=== PATIENT | female | born 1965 | race African-American/Black ===

== ENCOUNTER 2021-08-09 09:46 | Outpatient (CLI) | payer BC, SELFPAY ==
[2021-08-09 13:02] LABS: Anion Gap 7 mmol/L (8-16); Blood Urea Nitrogen 9 mg/dL (7-17); Calcium 9.2 mg/dL (8.4-10.2); Carbon Dioxide 25 mmol/L (22-30); Chloride 108 mmol/L (98-107); Cholesterol 164 mg/dL (0-200); Estimated Glomerular Filt Rate > 60; Glucose 100 mg/dL (65-110); HDL Direct 36 mg/dL; Potassium 4.3 mmol/L (3.4-5.0); Sodium 140 mmol/L (137-145); Triglycerides 90 mg/dL (<150)
[2021-08-09 13:12] LABS: LDL Cholesterol Direct 89 mg/dL
[2021-08-09 13:31] LABS: Thyroid Stimulating Hormone 0.893 uIU/mL (0.465-4.680)
[2021-08-09 14:30] LABS: Creatinine Urine 237.8 mg/dL
[2021-08-09 14:34] LABS: MALB Creatinine Ratio 4.5 mg/g (0-30); Microalbumin Urine Random 10.8 mg/L (0-16.7)
[2021-08-09 18:25] LABS: Free T4 Free Thyroxine 1.46 ng/mL (0.78-2.19); Vitamin D 25 Hydroxy 80.6 ng/mL
== END 2021-08-09 09:47 | disposition home or self-care (01) ==
LOC: ANHWCLAB 09:51
PROVIDERS: PCP Internal Medicine; Referring Provider Internal Medicine Endocrinology, Diabetes & Metabolism; Visit Provider Internal Medicine Endocrinology, Diabetes & Metabolism
DX: E11.40 Type 2 diabetes mellitus with diabetic neuropathy, unspecified (principal); E03.9 Hypothyroidism, unspecified; Z79.4 Long term (current) use of insulin; R79.89 Other specified abnormal findings of blood chemistry
CPT/HCPCS: 36415; 80048; 80061; 82043; 82306; 82607; 84439; 84443